=== PATIENT | female | born 1945 | race Hispanic/Latino ===

== ENCOUNTER 2019-05-06 13:05 | Day surgery (SDC) | payer MEDICARE ==
[~2019-05-06 13:05] MED LIST: SODIUM CHLORIDE 0.9% 1000 ML 1,000 ML IV SCH
[2019-05-06] MEDS ORDERED: fentaNYL 100 MCG/2 ML INJ ONE (14:44)
[2019-05-06] MEDS ORDERED: PROPOFOL 200 MG/20 ML VIAL IV ONE (14:44)
--- NOTE | 2019-05-06 14:51 | Anesthesia Consultation ---
Anesthesia Consult and Med Hx Date of service: 05/06/19 - Airway Anesthetic Teeth Evaluation: Poor, Chipped ROM Head & Neck: Adequate Mental/Hyoid Distance: Adequate Mallampati Class: Class II Intubation Access Assessment: Probably Good - Pulmonary Exam CTA: Yes - Cardiac Exam Cardiac Exam: RRR - Pre-Operative Health Status ASA Pre-Surgery Classification: ASA2 Proposed Anesthetic Plan: MAC - Pulmonary Hx Smoking: No (Quit 45 years ago) Hx Asthma: Yes (Induced by allergies; no recent attacks/hospitalizations) - Central Nervous System Hx Psychiatric Problems: Yes (Bipolar disorder) - Endocrine Hx Thyroid Disease: Yes - Hematic Hx Anemia: Yes - Other Systems Hx Alcohol Use: No (Quit 45 years ago)
--- NOTE | 2019-05-06 14:53 | Anesthesia Day of Surgery ---
Anesthesia Day of Surgery - Day of Surgery Patient Examined: Yes Patient H&P Reviewed: Yes Patient is NPO: Yes Beta Blockers: No
--- NOTE | 2019-05-06 16:12 | Procedure Note ---
Date of procedure: 05/06/19 Pre-op diagnosis: Diarrhea/ Melena Post-op diagnosis: other (No active Upper GI Bleeding noted/No Peptic Ulcer Disease noted/Mild to Moderate Distal Erosive Esophagitis/R/O Eosinophilic Esophagitis/ Gastritis/R/O Celiac Disease/R/O Microscopic Colitis) Procedure: EGD with Biopsy/Colonoscopy with Biopsy Anesthesia: SONA Surgeon: MELIDA JACK Estimated blood loss: minimal Pathology: list Specimen disposition: to lab Condition: stable Disposition: same day (Treat with PPI and Welchol. Avoid aspirin and NSAID for 4 days; otherwise resume home medication. Follow up in 1 to 2 weeks ([phone]).)
[2019-05-06 16:34] VITALS: BP 138/71
[2019-05-06 19:22] LABS: Iron 45 ug/dL (37-170); Total Iron Binding Capacity 208 mcg/dL (250-450)
--- NOTE | 2019-05-06 20:19 | Operative Report ---
PROCEDURE: Colonoscopy. INDICATIONS: A 73-year-old white female who has a prior history of colitis has lately been having diarrhea and weight loss. She also had been complaining of some dark stools, each suggestive possibly of melena. EGD did not show any significant upper GI source of bleeding. There was no peptic ulcer disease. The patient was noted to have [id number] distal erosive esophagitis, gastritis and biopsy was also done to rule out for possible celiac disease and eosinophilic esophagitis. PROCEDURE: Colonoscopy was done after getting informed consent with MAC anesthesia. Initial rectal exam was unremarkable. The patient had a very floppy colon. Instrument was passed through the rectum onto the cecum, which was identified with ileocecal valve and the appendiceal orifice. Visualization was fair. There was no evidence of any endoscopic evidence of colitis, diverticular disease or polyps. Random biopsies were done from the cecum, ascending colon, transverse colon, descending colon, and sigmoid to rule out for possible microscopic colitis and the rectum did not show any significant internal hemorrhoid on the retroverted view. There was minimal bleeding from the biopsy sites and no complications associated with the procedure. ASSESSMENT: Diarrhea, rule out microscopic colitis. No diverticula. No colon polyps noted. Plan is to advise the patient to avoid aspirin and aspirin-related products for the next few days. Otherwise, resume home medication. The patient will be treated with PPI because of the EGD findings of esophagitis, gastritis and also will be placed on Welchol and asked to follow up in the office in 1-2 weeks' time. Further treatment adjustment will be done according to the biopsy findings. The patient's procedure was done in the GI lab with assistance of the GI lab team, which included SHIRAZ Andre as well as Beatriz smith and with assistance of anesthesia. JOB# [id number] DEVEN/LYSSA
--- NOTE | 2019-05-06 20:20 | Operative Report ---
PROCEDURE: Esophagogastroduodenoscopy with biopsy. INDICATIONS: This is a 73-year-old white female who has a prior history of colitis. Lately, has been having diarrhea and also had noticed some dark stool suggestive of melena. EGD was done to assess for any significant upper GI pathology. DESCRIPTION OF PROCEDURE: The procedure was done after getting informed consent with MAC anesthesia. Instrument was passed through the hypopharynx into the esophagus, which showed mild to moderate distal erosive esophagitis. Biopsy was done from the midesophagus to rule out for eosinophilic esophagitis. The stomach showed gastritis. Biopsy was done from the gastric antrum, gastric body and angular incisura to rule out for H. pylori. The pylorus was patent. The duodenum in the first and second portion appeared normal. Biopsy was done from the second part to rule out for possible celiac disease. There was minimal bleeding associated with the procedure. No complications associated with the procedure. There was no evidence of any active upper GI bleeding noted and no evidence of any peptic ulcer disease noted. ASSESSMENT: History of melena. No active upper GI bleeding noted. No peptic ulcer disease noted. Mild to moderate distal erosive esophagitis, gastritis, rule out celiac disease. PLAN: Plan is to treat the patient with PPI, have the patient avoid aspirin and aspirin-related products for the next few days and to do a colonoscopy for further assessment of the patient's diarrhea and have the patient follow up in the office in 1-2 weeks' time. The patient will be asked to resume home medications except for aspirin and aspirin-related products and anticoagulants. The procedure was done in the GI lab with assistance of the GI lab team, which included SHIRAZ Andre as well as Beatriz smith and with assistance of anesthesia. The patient will also be treated with PPI. Labs like ferritin, vitamin B12 and folate will also be checked. JOB# [id number] DEVEN/LYSSA
--- NOTE | 2019-05-07 13:21 | Post Anesthesia Evaluation ---
- Post Anesthesia Evaluation Patient Participated: Yes Airway Patent: Yes Stable Respiratory Function: Yes Nausea/Vomiting: No Temp > 96.8F: Yes Pain Manageable: Yes Adequeate Hydration: Yes Anesthesia Complications: No Block Receding Appropriately: Not Applicable Patient on Ventilator: No
== END 2019-05-06 13:06 | disposition home or self-care (01) ==
LOC: GIO 13:05
DX: K52.9 Noninfective gastroenteritis and colitis, unspecified (principal); K20.9 Esophagitis, unspecified; K29.70 Gastritis, unspecified, without bleeding; K31.89 Other diseases of stomach and duodenum; R63.4 Abnormal weight loss; K92.1 Melena; K64.8 Other hemorrhoids; J45.909 Unspecified asthma, uncomplicated; H40.9 Unspecified glaucoma; F30.9 Manic episode, unspecified; D64.9 Anemia, unspecified; Z79.899 Other long term (current) drug therapy; Z88.8 Allergy status to other drugs, medicaments and biological substances; Z98.41 Cataract extraction status, right eye; Z72.89 Other problems related to lifestyle; Z98.890 Other specified postprocedural states; Z90.49 Acquired absence of other specified parts of digestive tract
CPT/HCPCS: 36415; 43239; 45380; 82607; 82728; 82747; 83550; 88305; 88342; J2704; J3010; J7030